=== PATIENT | female | born 1945 | race Caucasian/White ===

== ENCOUNTER 2020-08-13 08:49 | Outpatient (RCR) | payer MEDICARE, SELFPAY | END 2020-08-13 23:59 | LOC: IMMUN 08:49 | PROVIDERS: Visit Provider Family Medicine | DX: Z23 Encounter for immunization (principal) | CPT/HCPCS: 0011A; 0012A; 91301 ==

== ENCOUNTER 2023-10-19 03:17 | Day surgery (SDC) | payer MEDICARE, SELFPAY ==
[2023-10-19] VITALS (9 sets, daily range): BP systolic 83–153; BP diastolic 60–87; PULSE 85–94; RESP 16–19; TEMP 36.4–37.4; O2SAT 93–98; BMI 30.5
--- NOTE | 2023-10-19 | ESO_PTH ---
PATIENT: EMORY TALBOT LOC: EN U#:[id number] AGE/SX: 78/F ROOM: RE10/19/[address]: Dr. Galindo Blandon DO : 1945 BED: DIS: 10/19/2023 SPEC #: [id number] RECD: 10/19/23 11:44 STATUS: ANA NASRIN #: [id number] PAUL: 10/19/23 00:[address]: Galindo Blandon DEPT: SURGICAL PATHOLOGY RECD BY: Reagan Simental ENTERED: 10/19/23 11:44 SP TYPE: MONIE BURKETT DR: Dr. Aby Haines DO Tissues: Esophagus, NOS Procedures: Special Stain Group II Special Stain Group I Surgery Specimen Level IV GMS Stain (control) Alcian Blue/PAS (control) HEADER OPERATION: EGD with removal of food impaction and biopsy PRE-OP DIAGNOSIS: Food impaction TISSUE SUBMITTED: Distal esophagus biopsy MICROSCOPIC DIAGNOSIS Distal esophagus, biopsy: Fragments of gastroesophageal mucosa with acute and chronic inflammation. Intestinal metaplasia (goblet cell metaplasia) not identified. See comment. STEPHEN 10/22/23 COMMENT Alcian blue/PAS stain with matched control is used in the evaluation of the specimen. Special stain for fungi is negative for organisms; matched control is appropriate. Correlation with clinical, endoscopic findings and appropriate follow up are necessary. MICROSCOPIC DESCRIPTION Slides are reviewed. GROSS DESCRIPTION Received in fixative is one container labeled with the patient's name and designated Distal esophagus biopsy. The specimen consists of multiple irregular fragments of light marcos soft tissue that in aggregate measure 1.0 x 0.3 x 0.1 cm. The specimen is totally submitted in one cassette. STEPHEN 10/19/2023 TC:3 CPT: 68483,87807,53864
--- NOTE | 2023-10-19 03:29 | RAD_ITS ---
INDICATION: sob EXAMINATION/TECHNIQUE: X-RAY - XR Chest 1 View AP portable. 4:01 AM COMPARISON: None. FINDINGS: LINES/DEVICES: None. LUNGS: No consolidation. No pneumothorax. MEDIASTINUM: Unremarkable. CARDIAC SILHOUETTE: Not enlarged. BONES AND SOFT TISSUES: No acute abnormalities. RAD/Chest 1 View (Portable) IMPRESSION: No evidence of active intrathoracic disease. Electronically Signed: Key Buck MD at 5:01 EDT ,
--- NOTE | 2023-10-19 03:39 | EDS_ITS ---
HPI History of Present Illness Chief Complaint: Foreign Body Informant: patient Narrative Narrative: Patient presents secondary to nausea and vomiting with concern that she has an esophageal obstruction. Patient states that she has a history of a hiatal hernia and had an EGD previously and required dilatation. She states that she choked on something when she was eating today and started coughing. Since then she has had vomiting anytime she tries to eat or drink anything. She was out of state at the time and drove 4 hours back to her home before coming in. I was able to find records and [facility]. In May 2020 patient had an EGD performed with balloon dilatation of a thick ring in the distal esophagus. [facility] Medical History Esophageal stenosis Hiatal hernia Sleep apnea Home Medications amlodipine 5 mg tablet 5 mg PO BID 10/19/23 [History Last Taken Unknown] dapagliflozin propanediol 10 mg tablet (Farxiga) 10 mg PO DAILY 10/19/23 [History Last Taken Unknown] glimepiride 2 mg tablet 2 mg PO DAILY 10/19/23 [History Last Taken Unknown] levothyroxine 88 mcg tablet 88 mcg PO DAILY 10/19/23 [History Last Taken Unknown] losartan 100 mg tablet 100 mg PO DAILY 10/19/23 [History Last Taken Unknown] metformin 500 mg tablet,extended release 24 hr 500 mg PO BID 10/19/23 [History Last Taken Unknown] nebivolol 20 mg tablet 20 mg PO DAILY 10/19/23 [History Last Taken Unknown] semaglutide 7 mg tablet (Rybelsus) 7 mg PO DAILY 10/19/23 [History Last Taken Unknown] Allergy/AdvReac Type Severity Reaction Status Date / Time No Known Allergies Allergy Verified 10/19/23 03:28 Social History Smoking Status: Never smoker ROS ROS ED Constitutional Constitutional ED: Denies chills or fever(s) Eyes Eyes: Denies change in vision or discharge from eye(s) ENT ENT ED: Denies discharge from eye(s), rhinorrhea or sore throat Cardiovascular Cardiovascular: Denies chest pain or palpitations Respiratory/Chest Respiratory/Chest: Denies cough or dyspnea Gastrointestinal Gastrointestinal: Reports nausea and vomiting; Denies abdominal pain or diarrhea Musculoskeletal Musculoskeletal: Denies back pain or extremity pain Integumentary Denies Abrasions or rash Neurologic Neurologic: Denies headache(s) or weakness Allergic/Immunologic Allergic/Immunologic ED: Denies lip swelling or urticaria EXAM Physical Exam Narrative Exam Narrative: Patient sitting upright in bed. She is tolerating secretions well and speaks with a strong voice. Const Vital Signs: 10/19/23 03:18 10/19/23 04:03 Temperature 98.3 F Temperature Source Oral Pulse Rate 85 Respiratory Rate 19 H Respiratory Effort Normal Respiratory Pattern Normal Blood Pressure 153/87 H Blood Pressure Mean 109 Pulse Ox 97 Oxygen Delivery Method Room Air Positive well nourished and well developed General Appearance ED: well developed HEENT Reports moist mucous membranes Eyes EOMs intact bilaterally Neck no lymphadenopathy Chest Wall inspection of chest normal and palpation of chest normal Resp normal respiratory effort and clear to auscultation bilaterally Cardio regular rate and regular rhythm GI non-tender Palpation: soft Extremity normal to inspection Neuro oriented x3 and no sensory deficits noted Motor Exam: strength 5/5 throughout Psych mental status grossly normal Skin no rashes or lesions noted MDM MDM MDM Narrative Medical decision making narrative: IV line established. Patient given 1 mg of IV glucagon. Chest x-ray obtained to evaluate for air-fluid level and hiatal hernia. Chest x-ray per my interpretation was chronic changes. No obvious infiltrate. No definite air-fluid level in the mid chest. Patient has not felt any improvement after glucagon. Patient will be evaluated by Dr. Blandon for EGD. Discharge Plan Triage Chief Complaint: Foreign Body Other Complaint: Nausea/Vomiting ED Provider: Amairani Landry Dx/Rx/DC Orders Clinical Impression: Food impaction of esophagus Prescriptions: No Action metformin 500 mg tablet extended release 24 hr 500 mg PO BID amlodipine 5 mg tablet 5 mg PO BID glimepiride 2 mg tablet 2 mg PO DAILY levothyroxine 88 mcg tablet 88 mcg PO DAILY losartan 100 mg tablet 100 mg PO DAILY nebivolol 20 mg tablet 20 mg PO DAILY dapagliflozin propanediol [Farxiga] 10 mg tablet 10 mg PO DAILY Rybelsus 7 mg tablet 7 mg PO DAILY Primary Care Provider: Aby Haines Referrals: Aby Haines, [Primary Care Provider] - Disposition Disposition: Acute Care Hospital [facility]
[2023-10-19] MEDS: Glucagon 1 MG/ML Syringe IV (04:08)
[2023-10-19] MEDS: Ondansetron 4 MG/2 ML Vial IV (05:35)
--- NOTE | 2023-10-19 07:17 | HP.PCM_ITS ---
HPI - General General Date of Admission: 10/19/23 Date of Service: 10/19/23 Chief Complaint: Foreign body HPI Narrative EMORY TALBOT, is a 78 F who presents with an inability to swallow due to foreign body sensation. Patient presents secondary to nausea and vomiting with concern that she has an esophageal obstruction. Patient states that she has a history of a hiatal hernia and had an EGD previously and required dilatation. She states that she choked on something when she was eating today and started coughing. Since then she has had vomiting anytime she tries to eat or drink anything. She was out of state at the time and drove 4 hours back to her home before coming in. I was able to find records and [facility]. In May 2020 patient had an EGD performed with balloon dilatation of a thick ring in the distal esophagus. [facility] Medical History Esophageal stenosis Hiatal hernia Sleep apnea Home Medications amlodipine 5 mg tablet 5 mg PO BID 10/19/23 [History Last Taken 10/18/23] dapagliflozin propanediol 10 mg tablet (Farxiga) 10 mg PO DAILY 10/19/23 [History Last Taken 10/18/23] glimepiride 2 mg tablet 2 mg PO DAILY 10/19/23 [History Last Taken 10/18/23] levothyroxine 88 mcg tablet 88 mcg PO DAILY 10/19/23 [History Last Taken 10/18/23] losartan 100 mg tablet 100 mg PO DAILY 10/19/23 [History Last Taken 10/18/23] metformin 500 mg tablet,extended release 24 hr 500 mg PO BID 10/19/23 [History Last Taken 10/18/23] nebivolol 20 mg tablet 20 mg PO DAILY 10/19/23 [History Last Taken 10/18/23] semaglutide 7 mg tablet (Rybelsus) 7 mg PO DAILY 10/19/23 [History Last Taken 10/18/23] Allergy/AdvReac Type Severity Reaction Status Date / Time No Known Allergies Allergy Verified 10/19/23 07:10 Social History Smoking Status: Never smoker ROS ROS Narrative Dysphagia Review of Systems ROS Unobtainable: other Constitutional Constitutional: Denies fatigue, fever(s), poor appetite, weight gain or weight loss ENT HEENT: Denies mouth lesions Cardiovascular Cardiovascular: Denies abdominal bloating, abdominal edema or abdominal pain Respiratory/Chest Respiratory/Chest: Denies change in mental status, change in phlegm color, chest congestion or chest tightness Gastrointestinal Gastrointestinal: Denies belching, bloating, change in bowel habits, change in stool character, chewing difficulty, coffee ground emesis, constipation, cramping, diarrhea, dyspepsia, dysphagia, early satiety, excessive flatus, fecal incontinence, heartburn, hematemesis, hematochezia, hemorrhoids, loose stools, melena, nausea, odynophagia, rectal bleeding, tenesmus, vomiting or weight changes Genitourinary Genitourinary: Denies abdominal discomfort, burning urination or itching Musculoskeletal Musculoskeletal: Reports as per HPI; Denies muscle weakness or myalgias Integumentary Integumentary: Denies jaundice Neurologic Neurologic: Denies lack of coordination or weakness Psychiatric Psychiatric: Denies confusion, depression, memory loss, mood swings, paranoia or suicidal ideation Endocrine Endocrinology: Denies systems reviewed and no addt'l complaints, except as documented Hematologic/Lymphatic Hematologic/Lymphatic: Denies anemia, easy bleeding, easy bruising or lymphadenopathy Allergic/Immunologic Allergic/Immunologic: Denies systems reviewed and no addt'l complaints, except as documented Vital Signs Vital Signs Vital Signs: 10/19/23 03:18 10/19/23 04:03 10/19/23 05:33 Temperature 98.3 F Temperature Source Oral Pulse Rate 85 93 Respiratory Rate 19 H 16 Respiratory Effort Normal Respiratory Pattern Normal Blood Pressure 153/87 H 145/85 H Blood Pressure Mean 109 105 Blood Pressure Source Blood Pressure Position Blood Pressure Location Pulse Ox 97 98 Oxygen Delivery Method Room Air Room Air 10/19/23 05:37 10/19/23 06:26 Temperature 97.9 F 98.7 F Temperature Source Temporal Pulse Rate 93 92 Respiratory Rate 16 18 Respiratory Effort Respiratory Pattern Blood Pressure 145/85 H 145/86 H Blood Pressure Mean 105 105 Blood Pressure Source Monitor Blood Pressure Position Supine Blood Pressure Location Left Arm Pulse Ox 98 98 Oxygen Delivery Method Room Air Weight Weight: 177 lb 14.609 oz Body Mass Index (BMI) 30.5 Physical Exam Const alert General Appearance: cooperative Orientation / Consciousness: oriented to person HEENT hearing grossly normal bilaterally Head and Scalp: normal to inspection Face and Sinus: face symmetric Nose: external nose normal Mouth: oral and palatal mucosa normal Eyes conjunctivae normal General Eye: normal appearance of both eyes Neck full ROM General: normal visual inspection Lymph Lymphatic: no lymphadenopathy noted Chest inspection of chest normal and palpation of chest normal Chest: symmetrical chest wall rise Resp normal respiratory effort Effort and Inspection: able to speak in complete sentences Cardio regular rate GI non-distended Percussion: normal to percussion Rectal Exam: deferred Neuro Speech: speech normal Gait (Neuro): normal gait Results Imaging Radiology Impression Chest X-Ray 10/19/23 03:29 IMPRESSION: No evidence of active intrathoracic disease. Electronically Signed: Key Buck MD at 5:01 EDT , Assessment & Plan Assessment/Plan (1) Food impaction of esophagus: PLAN: Plan 78-year-old comes in with foreign body sensation. She has a past medical history of hypertension, diabetes, hypothyroidism and history of previous food impaction. She will need to undergo EGD with foreign body removal. She was explained alternatives, risk, benefits include not withstanding bleeding, infection, sepsis, perforation, need for emergent urgent . She will have an ASA of 3.
[2023-10-19 07:42] LABS: Bedside Glucose 105 mg/dL (74-106)
--- NOTE | 2023-10-19 07:59 | OP.EGD_ITS ---
Patient Name: Rupal Preston Procedure Date: 10/19/2023 7:38 AM Date of : 1945 Age: 78 Procedure: Upper GI endoscopy Indications: Dysphagia Providers: Galindo Blandon DO Medicines: Monitored Anesthesia Care Patient Profile: This is a 78 year old female. Refer to note in patient chart for documentation of history and physical. Patient has symptoms of dysphagia with both liquids and solids. Her most recent EGD for foreign body removal was within the past three years. Complications: No immediate complications. Procedure: Pre-Anesthesia Assessment: - Prior to the procedure, a History and Physical was performed, and patient medications and allergies were reviewed. The risks and benefits of the procedure and the sedation options and risks were discussed with the patient. All questions were answered and informed consent was obtained. Patient identification and proposed procedure were verified by the physician in the pre-procedure area. Mental Status Examination: alert and oriented. Airway Examination: normal oropharyngeal airway and neck mobility. CV Examination: normal. Prophylactic Antibiotics: The patient does not require prophylactic antibiotics. Prior Anticoagulants: The patient has taken no anticoagulant or antiplatelet agents. After reviewing the risks and benefits, the patient was deemed in satisfactory condition to undergo the procedure. The anesthesia plan was to use monitored anesthesia care (MAC). Immediately prior to administration of medications, the patient was re-assessed for adequacy to receive sedatives. The heart rate, respiratory rate, oxygen saturations, blood pressure, adequacy of pulmonary ventilation, and response to care were monitored throughout the procedure. The physical status of the patient was re-assessed after the procedure. After obtaining informed consent, the endoscope was passed under direct vision. Throughout the procedure, the patient's blood pressure, pulse, and oxygen saturations were monitored continuously. The Endoscope was introduced through the mouth, and advanced to the second part of duodenum. The upper GI endoscopy was accomplished without difficulty. The patient tolerated the procedure well. Scope In: 7:47:15 AM Scope Out: 7:51:56 AM Total Procedure Duration Time 0 hours 4 minutes 41 seconds Findings: Food was found in the lower third of the esophagus. Removal was accomplished with a Castaneda net. Verification of patient identification for the specimen was done. Estimated blood loss was minimal. LA Grade B (one or more mucosal breaks greater than 5 mm, not extending between the tops of two mucosal folds) esophagitis with no bleeding was found 39 to 42 cm from the incisors. Biopsies were taken with a cold forceps for histology. Verification of patient identification for the specimen was done. Estimated blood loss was minimal. A severe Schatzki ring was found in the lower third of the esophagus. A medium-sized hiatal hernia was present. The exam of the stomach was otherwise normal. No gross lesions were noted in the duodenal bulb. Impression: - Food in the lower third of the esophagus. Removal was successful. - LA Grade B reflux esophagitis with no bleeding. Biopsied. - Severe Schatzki ring. - Medium-sized hiatal hernia. - No gross lesions in the duodenal bulb. Recommendation: - Discharge patient to home. - Full liquid diet x 5 days - Pantoprazole 40 mg p.o. twice daily for life - Repeat upper endoscopy for esophageal dilation - Continue present medications. Procedure Code(s): --- Professional --- 98553, Esophagogastroduodenoscopy, flexible, transoral; with removal of foreign body(s) 69042, Esophagogastroduodenoscopy, flexible, transoral; with biopsy, single or multiple CPT copyright 2021 [employer]. All rights reserved. The codes documented in this report are preliminary and upon pre coder review may be revised to meet current compliance requirements. Galindo Blandon DO 10/19/2023 7:58:33 AM This report has been signed electronically. Number of Addenda: 0 Note Initiated On: 10/19/2023 7:38 AM
--- NOTE | 2023-10-19 07:59 | OP.CCLET_ITS ---
10/19/2023 Aby Haines Re : Upper GI endoscopy procedure for Rupal Preston Dear Yancy This procedure was performed on Thursday, October 19, 2023. My impressions and recommendations are as follows: Impressions : - Food in the lower third of the esophagus. Removal was successful. - LA Grade B reflux esophagitis with no bleeding. Biopsied. - Severe Schatzki ring. - Medium-sized hiatal hernia. - No gross lesions in the duodenal bulb. Recommendations : - Discharge patient to home. - Full liquid diet x 5 days - Pantoprazole 40 mg p.o. twice daily for life - Repeat upper endoscopy for esophageal dilation - Continue present medications. My findings are described in the full procedure note, which is enclosed. If I can be of further assistance, please feel free to contact me at . Sincerely, Galindo Blandon, 10/19/2023 7:58:33 AM This report has been signed electronically.
[2023-10-19] MEDS: Pantoprazole Sodium 40 MG in 0.9% Normal Saline (100mL MB+) 100 ML 330 MG IV (08:34)
== END 2023-10-19 09:28 | disposition home or self-care (01) ==
LOC: ED 06:49 → EN 06:59 → ACINP 06:59
PROVIDERS: Emergency Provider Emergency Medicine; Referring Provider Internal Medicine Gastroenterology; Visit Provider Internal Medicine Gastroenterology
PROC: 0DJ08ZZ Inspection of Upper Intestinal Tract, Via Natural or Artificial Opening Endoscopic (ICD-10-PCS; CPT 43235; principal; 2023-10-19 09:40)
DX: T18.108A Unspecified foreign body in esophagus causing other injury, initial encounter (principal); E11.9 Type 2 diabetes mellitus without complications; K44.9 Diaphragmatic hernia without obstruction or gangrene; Z79.899 Other long term (current) drug therapy; Z79.890 Hormone replacement therapy; Z79.84 Long term (current) use of oral hypoglycemic drugs; K22.2 Esophageal obstruction; I10 Essential (primary) hypertension; E03.9 Hypothyroidism, unspecified; W44.F3XA Food entering into or through a natural orifice, initial encounter
CPT/HCPCS: 43239; 43247; 71045; 82962; 88305; 88312; 88313; 99284; J7030; J7120; A4216; J2405

== ENCOUNTER 2023-10-30 13:22 | Day surgery (SDC) | payer MEDICARE, SELFPAY ==
[2023-10-30] MEDS: Lactated Ringers 1,000 ML 15 ML IV (13:48)
[2023-10-30 13:50] VITALS: BP 150/85; PULSE 89; RESP 18; TEMP 36.9; O2SAT 99; BMI 31.1
[2023-10-30 14:12] LABS: Bedside Glucose 155 mg/dL (74-106)
--- NOTE | 2023-10-30 14:23 | HP.PCM_ITS ---
History and Physical Date of Admission: 10/30/23 EMORY TALBOT, is a 78 F who presents with an inability to swallow due to foreign body sensation. Patient presents secondary to nausea and vomiting with concern that she has an esophageal obstruction. Patient states that she has a history of a hiatal hernia and had an EGD previously and required dilatation. She states that she choked on something when she was eating today and started coughing. Since then she has had vomiting anytime she tries to eat or drink anything. She was out of state at the time and drove 4 hours back to her home before coming in. I was able to find records and [facility]. In May 2020 patient had an EGD performed with balloon dilatation of a thick ring in the distal esophagus. [facility] Medical History Esophageal stenosis Hiatal hernia Sleep apnea Home Medications amlodipine 5 mg tablet 5 mg PO BID 10/19/23 [History Last Taken 10/18/23] dapagliflozin propanediol 10 mg tablet (Farxiga) 10 mg PO DAILY 10/19/23 [History Last Taken 10/18/23] glimepiride 2 mg tablet 2 mg PO DAILY 10/19/23 [History Last Taken 10/18/23] levothyroxine 88 mcg tablet 88 mcg PO DAILY 10/19/23 [History Last Taken 10/18/23] losartan 100 mg tablet 100 mg PO DAILY 10/19/23 [History Last Taken 10/18/23] metformin 500 mg tablet,extended release 24 hr 500 mg PO BID 10/19/23 [History Last Taken 10/18/23] nebivolol 20 mg tablet 20 mg PO DAILY 10/19/23 [History Last Taken 10/18/23] semaglutide 7 mg tablet (Rybelsus) 7 mg PO DAILY 10/19/23 [History Last Taken 10/18/23] Allergy/AdvReac Type Severity Reaction Status Date / Time No Known Allergies Allergy Verified 10/19/23 07:10 Social History Smoking Status: Never smoker ROS ROS Narrative Dysphagia Review of Systems ROS Unobtainable: other Constitutional Constitutional: Denies fatigue, fever(s), poor appetite, weight gain or weight loss ENT HEENT: Denies mouth lesions Cardiovascular Cardiovascular: Denies abdominal bloating, abdominal edema or abdominal pain Respiratory/Chest Respiratory/Chest: Denies change in mental status, change in phlegm color, chest congestion or chest tightness Gastrointestinal Gastrointestinal: Denies belching, bloating, change in bowel habits, change in stool character, chewing difficulty, coffee ground emesis, constipation, cramping, diarrhea, dyspepsia, dysphagia, early satiety, excessive flatus, fecal incontinence, heartburn, hematemesis, hematochezia, hemorrhoids, loose stools, melena, nausea, odynophagia, rectal bleeding, tenesmus, vomiting or weight changes Genitourinary Genitourinary: Denies abdominal discomfort, burning urination or itching Musculoskeletal Musculoskeletal: Reports as per HPI; Denies muscle weakness or myalgias Integumentary Integumentary: Denies jaundice Neurologic Neurologic: Denies lack of coordination or weakness Psychiatric Psychiatric: Denies confusion, depression, memory loss, mood swings, paranoia or suicidal ideation Endocrine Endocrinology: Denies systems reviewed and no addt'l complaints, except as documented Hematologic/Lymphatic Hematologic/Lymphatic: Denies anemia, easy bleeding, easy bruising or lymphadenopathy Allergic/Immunologic Allergic/Immunologic: Denies systems reviewed and no addt'l complaints, except as documented Vital Signs Vital Signs Vital Signs: 10/18/2402:18 10/19/2403:03 10/18/2404:33 Temperature 98.3 F Temperature Source Oral Pulse Rate 85 93 Respiratory Rate 19 H 16 Respiratory Effort Normal Respiratory Pattern Normal Blood Pressure 153/87 H 145/85 H Blood Pressure Mean 109 105 Blood Pressure Source Blood Pressure Position Blood Pressure Location Pulse Ox 97 98 Oxygen Delivery Method Room Air Room Air 10/18/2404:37 10/18/2405:26 Temperature 97.9 F 98.7 F Temperature Source Temporal Pulse Rate 93 92 Respiratory Rate 16 18 Respiratory Effort Respiratory Pattern Blood Pressure 145/85 H 145/86 H Blood Pressure Mean 105 105 Blood Pressure Source Monitor Blood Pressure Position Supine Blood Pressure Location Left Arm Pulse Ox 98 98 Oxygen Delivery Method Room Air Weight Weight: 177 lb 14.609 oz Body Mass Index (BMI) 30.5 Physical Exam Const alert General Appearance: cooperative Orientation / Consciousness: oriented to person HEENT hearing grossly normal bilaterally Head and Scalp: normal to inspection Face and Sinus: face symmetric Nose: external nose normal Mouth: oral and palatal mucosa normal Eyes conjunctivae normal General Eye: normal appearance of both eyes Neck full ROM General: normal visual inspection Lymph Lymphatic: no lymphadenopathy noted Chest inspection of chest normal and palpation of chest normal Chest: symmetrical chest wall rise Resp normal respiratory effort Effort and Inspection: able to speak in complete sentences Cardio regular rate GI non-distended Percussion: normal to percussion Rectal Exam: deferred Neuro Speech: speech normal Gait (Neuro): normal gait Results Imaging Radiology Impression Chest X-Ray 10/19/23 03:29 IMPRESSION: No evidence of active intrathoracic disease. Electronically Signed: Key Buck MD at 5:01 EDT , Assessment & Plan Assessment/Plan (1) Food impaction of esophagus: PLAN: Plan 78-year-old comes in with foreign body sensation. She has a past medical history of hypertension, diabetes, hypothyroidism and history of previous food impaction. She will need to undergo EGD with foreign body removal. She was explained alternatives, risk, benefits include not withstanding bleeding, infection, sepsis, perforation, need for emergent urgent . She will have an ASA of 3. I have examined the patient and the H&P has been reviewed. There are no clinical changes since date of exam.
--- NOTE | 2023-10-30 14:30 | EGD_PTH ---
PATIENT: EMORY TALBOT LOC: EN U#:[id number] AGE/SX: 78/F ROOM: RE10/30/[address]: Dr. Galindo Blandon DO : 1945 BED: DIS: 10/30/2023 SPEC #: [id number] RECD: 10/30/23 16:16 STATUS: ANA NASRIN #: [id number] PAUL: 10/30/23 14:[address]: Galindo Blandon DEPT: SURGICAL PATHOLOGY RECD BY: Deidre Easton ENTERED: 10/31/23 10:52 SP TYPE: EGD BIOPSY MADELAINE DR: Dr. Aby Haines DO Tissues: Esophagus, NOS Procedures: Special Stain Group II Surgery Specimen Level IV Alcian Blue/PAS (control) HEADER OPERATION: EGD with biopsy and dilatation PRE-OP DIAGNOSIS: Food impaction of esophagus TISSUE SUBMITTED: Distal esophagus biopsy MICROSCOPIC DIAGNOSIS Distal esophagus, biopsy: Fragments of gastroesophageal mucosa with chronic inflammation. Intestinal metaplasia (goblet cell metaplasia) not identified. See comment. CHANEL/ 11/01/23 COMMENT Alcian blue/PAS stain with matched control is used in the evaluation of the specimen. This specimen predominantly consists of squamous mucosa. MICROSCOPIC DESCRIPTION Slides are reviewed. GROSS DESCRIPTION Received in fixative is one container labeled with the patient's name and designated Distal esophagus biopsy. The specimen consists of multiple irregular fragments of light marcso soft tissue that in aggregate measure 1.5 x 0.3 x 0.1 cm. The specimen is totally submitted in one cassette. JIL/ 10/31/23 TC:3 CPT:08448 ,19082
[2023-10-30 14:37] VITALS: BP 150/85; BP 96/66; PULSE 84; RESP 17; TEMP 36.7; O2SAT 94
[2023-10-30 14:40] VITALS: BP 150/85; BP 93/60; PULSE 87; RESP 18; O2SAT 97
--- NOTE | 2023-10-30 14:42 | OP.EGD_ITS ---
Patient Name: Rupal Preston Procedure Date: 10/30/2023 2:14 PM Date of : 1945 Age: 78 Procedure: Upper GI endoscopy Indications: Dysphagia Providers: Galindo Blandon DO Referring MD: Aby Haines Medicines: Monitored Anesthesia Care Patient Profile: This is a 78 year old female. Refer to note in patient chart for documentation of history and physical. Patient has symptoms. Her most recent EGD for foreign body removal was within the past month. Complications: No immediate complications. Procedure: Pre-Anesthesia Assessment: - Prior to the procedure, a History and Physical was performed, and patient medications and allergies were reviewed. The patient is competent. The risks and benefits of the procedure and the sedation options and risks were discussed with the patient. All questions were answered and informed consent was obtained. Patient identification and proposed procedure were verified by the physician in the pre-procedure area. Mental Status Examination: alert and oriented. Airway Examination: normal oropharyngeal airway and neck mobility. Respiratory Examination: clear to auscultation. CV Examination: normal. Prophylactic Antibiotics: The patient does not require prophylactic antibiotics. Prior Anticoagulants: The patient has taken no anticoagulant or antiplatelet agents. ASA Grade Assessment: II - A patient with mild systemic disease. After reviewing the risks and benefits, the patient was deemed in satisfactory condition to undergo the procedure. The anesthesia plan was to use monitored anesthesia care (MAC). Immediately prior to administration of medications, the patient was re-assessed for adequacy to receive sedatives. The heart rate, respiratory rate, oxygen saturations, blood pressure, adequacy of pulmonary ventilation, and response to care were monitored throughout the procedure. The physical status of the patient was re-assessed after the procedure. After obtaining informed consent, the endoscope was passed under direct vision. Throughout the procedure, the patient's blood pressure, pulse, and oxygen saturations were monitored continuously. The Endoscope was introduced through the mouth, and advanced to the second part of duodenum. The upper GI endoscopy was accomplished without difficulty. The patient tolerated the procedure well. Scope In: 2:27:13 PM Scope Out: 2:32:43 PM Total Procedure Duration Time 0 hours 5 minutes 30 seconds Findings: The Z-line was irregular and was found 38 cm from the incisors. Biopsies were taken with a cold forceps for histology. Verification of patient identification for the specimen was done. Estimated blood loss was minimal. A moderate Schatzki ring was found at the gastroesophageal junction. A guidewire was placed and the scope was withdrawn. Dilation was performed with a Savary dilator with no resistance at 60 Fr. The dilation site was examined and showed moderate mucosal disruption. A large hiatal hernia was present. The exam of the stomach was otherwise normal. No gross lesions were noted in the first portion of the duodenum. Impression: - Z-line irregular, 38 cm from the incisors. Biopsied. - Moderate Schatzki ring. Dilated. - Large hiatal hernia. - No gross lesions in the first portion of the duodenum. Recommendation: - Discharge patient to home. - Full liquid diet today. - Continue present medications. - Await pathology results. - Repeat upper endoscopy in 1 year for surveillance. Procedure Code(s): --- Professional --- 85543, Esophagogastroduodenoscopy, flexible, transoral; with insertion of guide wire followed by passage of dilator(s) through esophagus over guide wire 40850, 59,51, Esophagogastroduodenoscopy, flexible, transoral; with biopsy, single or multiple CPT copyright 2021 [employer]. All rights reserved. The codes documented in this report are preliminary and upon seed cleaning manager review may be revised to meet current compliance requirements. Galindo Blandon DO 10/30/2023 2:41:38 PM This report has been signed electronically. Number of Addenda: 0 Note Initiated On: 10/30/2023 2:14 PM
--- NOTE | 2023-10-30 14:42 | OP.CCLET_ITS ---
10/30/2023 Aby Haines Re : Upper GI endoscopy procedure for Rupal Preston Dear Yancy This procedure was performed on Monday, October 30, 2023. My impressions and recommendations are as follows: Impressions : - Z-line irregular, 38 cm from the incisors. Biopsied. - Moderate Schatzki ring. Dilated. - Large hiatal hernia. - No gross lesions in the first portion of the duodenum. Recommendations : - Discharge patient to home. - Full liquid diet today. - Continue present medications. - Await pathology results. - Repeat upper endoscopy in 1 year for surveillance. My findings are described in the full procedure note, which is enclosed. If I can be of further assistance, please feel free to contact me at . Sincerely, Galindo Blandon, 10/30/2023 2:41:38 PM This report has been signed electronically.
[2023-10-30 14:45] VITALS: BP 150/85; BP 98/62; PULSE 84; RESP 18; O2SAT 93
[2023-10-30 15:00] VITALS: BP 102/71; BP 150/85; PULSE 79; RESP 16; TEMP 36.6; O2SAT 97
[2023-10-30 15:15] VITALS: BP 150/85
== END 2023-10-30 15:33 | disposition home or self-care (01) ==
LOC: EN 13:29 → AC 13:30
PROVIDERS: Visit Provider Internal Medicine Gastroenterology
PROC: 0DJ08ZZ Inspection of Upper Intestinal Tract, Via Natural or Artificial Opening Endoscopic (ICD-10-PCS; CPT 43235; principal; 2023-10-30 14:25)
DX: K22.2 Esophageal obstruction (principal); E11.9 Type 2 diabetes mellitus without complications; K44.9 Diaphragmatic hernia without obstruction or gangrene; I10 Essential (primary) hypertension; E03.9 Hypothyroidism, unspecified; Z79.899 Other long term (current) drug therapy; Z79.890 Hormone replacement therapy; E78.00 Pure hypercholesterolemia, unspecified; K21.00 Gastro-esophageal reflux disease with esophagitis, without bleeding; Z79.84 Long term (current) use of oral hypoglycemic drugs
CPT/HCPCS: 43239; 43248; 82962; 88305; 88313; J7120; C1769; J2405